=== PATIENT | male | born 1990 | race Caucasian/White ===

== ENCOUNTER 2020-01-26 05:56 | Emergency (ER) | payer MEDICAID, OTHER ==
[~2020-01-26] VITALS: Ht 177.8 cm; Wt 104.6 kg
[2020-01-26 05:59] VITALS: BP 144/87
[2020-01-26] MEDS ORDERED: LIDOCAINE-MPF 2% ,5ML ONE (06:11)
--- NOTE | 2020-01-26 06:13 | NUR ---
PT CAME INTO ED TODAY AFTER CUTTING LEFT THUMB WITH A [employer]EL[employer] AT WORK. PT NAD, CMS INTACT, APPROX 1INCH LONG LAC. BLEEDING IS CONTROLLED WITH GAUZE AT THIS TIME. DANA. AMIE RUTHERFORD AT BS FOR EVAL AND POC.
[2020-01-26] MEDS ORDERED: NEOSPORIN OINT. PKT 1 PACKET ONE ×2 (06:16→06:39)
[2020-01-26] MEDS ORDERED: LIDOCAINE 1%, 10ML INFIL ONE (06:30)
--- NOTE | 2020-01-26 06:49 | NUR ---
report to Phuc RN, pt care transferred at this time. pt thumb bandaged, pt nad, no change in condition.
--- NOTE | 2020-01-26 07:15 | NUR ---
Patient/Caregiver given discharge instructions and they have confirmed that they understand the instructions. Patient ambulatory with steady gait.
== END 2020-01-26 07:17 | disposition home or self-care (01) ==
LOC: ED 06:20
DX: S61.012A Laceration without foreign body of left thumb without damage to nail, initial encounter (principal); W26.8XXA Contact with other sharp object(s), not elsewhere classified, initial encounter; Z87.891 Personal history of nicotine dependence; Y93.89 Activity, other specified; Y92.89 Other specified places as the place of occurrence of the external cause; Y99.0 Civilian activity done for income or pay
CPT/HCPCS: 12001; 99282